=== PATIENT | female | born 1985 | race Asian ===

== ENCOUNTER 2018-03-19 15:52 | Emergency (ER) | payer OTHER ==
[~2018-03-19] VITALS: Ht 160 cm; Wt 63.5 kg
--- NOTE | 2018-03-19 15:52 | NUR ---
RECIEVED PT AT THIS TIME. PT APPEARS VERY ANXIOUS, PT STS "FELT LIKE MY HEART WAS RACING" AFTER [place] PT GOWNED AND PLACED ON CONT CARDIAC AND POX MONITORING. ALL NEEDS ARE ATTENDED, KEPT COMFORTABLE. WILL CONT TO MONITOR
[2018-03-19] MEDS ORDERED: LEVO1TAB66 PO (16:02)
[2018-03-19] MEDS ORDERED: LORAZEPAM 1 MG TABLET ONE (16:09)
[2018-03-19] MEDS ORDERED: LORAZEPAM 1 MG TABLET PO ONE (16:30)
--- NOTE | 2018-03-19 16:52 | NUR ---
pt sts she feels much better. vss pending discharge
[2018-03-19 16:54] VITALS: BP 141/84
--- NOTE | 2018-03-19 16:54 | NUR ---
Patient discharged to home in stable condition. Written and verbal after care instructions given. Instructed not to drive. Patient verbalizes understanding of instruction.
== END 2018-03-19 16:55 | disposition home or self-care (01) ==
LOC: ER 15:57 → EDBD 15:57 → ER 16:55
DX: F41.9 Anxiety disorder, unspecified (principal)
CPT/HCPCS: 99284; A4606; Z7610